=== PATIENT | female | born 1995 | race Caucasian/White ===

== ENCOUNTER 2018-08-10 17:51 | Emergency (ER) | payer MEDICAID ==
[~2018-08-10 17:51] MED LIST: RANI150T7 PO
[2018-08-10] MEDS ORDERED: ONDANSETRON ODT 4 MG TAB ONE (18:20)
[2018-08-10 18:31] LABS: APPEARANCE,URINE Cloudy (CLEAR); BILIRUBIN,URINE Negative (NEGATIVE); COLOR,URINE Yellow (YELLOW); GLUCOSE, URINE (UA) Negative (NEGATIVE); KETONES,URINE Trace mg/dL (NEGATIVE); LEUKOCYTE ESTERASE ,URINE Moderate (NEGATIVE); NITRATE,URINE Negative (NEGATIVE); OCCULT BLOOD,URINE Negative (NEGATIVE); PROTEIN,URINE Negative (NEGATIVE)
[2018-08-10 18:43] LABS: RBC,URINE 0-1 /HPF (0-1)
[2018-08-10 18:44] LABS: BACTERIA,URINE Many /HPF (None Seen)
[2018-08-10 18:45] LABS: RAPID GROUP A STREP NEGATIVE (NEGATIVE)
== END 2018-08-10 19:18 | disposition home or self-care (01) ==
LOC: EDH 17:51
DX: O98.511 Other viral diseases complicating pregnancy, first trimester (principal); O23.11 Infections of bladder in pregnancy, first trimester; B34.9 Viral infection, unspecified; Z3A.13 13 weeks gestation of pregnancy
CPT/HCPCS: 81001; 87804; 87880

== ENCOUNTER 2018-08-11 07:56 | Emergency (ER) | payer MEDICAID ==
[2018-08-11] MEDS ORDERED: SODIUM CHLORIDE 0.9% 1000ML 1,000 ML IV ONE (08:40)
[2018-08-11] MEDS ORDERED: PROMETHAZINE HCL 25 MG/ML 1ML AMPULE IM ONE (08:40)
== END 2018-08-11 10:15 | disposition home or self-care (01) ==
LOC: EDH 07:56
DX: O21.1 Hyperemesis gravidarum with metabolic disturbance (principal); Z3A.11 11 weeks gestation of pregnancy; Z72.0 Tobacco use
CPT/HCPCS: 96365; 99284; J2550; J7030; 96366